=== PATIENT | female | born 1995 | race Caucasian/White ===

== ENCOUNTER 2023-10-24 01:15 | Inpatient (IN) | payer OTHER ==
[2023-10-24] MEDS ORDERED: OXYTOCIN 20 UNITS in 0.9% NS 20 UNIT/1,000 ML INFUS.BAG IV ONE ×2 (02:36→07:48)
[2023-10-24] MEDS ORDERED: LIDOCAINE HCL 1% PRESERVATIVE FREE - 30ML VIAL ONE (02:36)
[2023-10-24] MEDS ORDERED: DEXTROSE 5%-LACTATED RINGERS 1,000 ML IV SCH ×2 (02:45→04:45)
[2023-10-24 03:10] VITALS: BMI 35.7
[2023-10-24 03:12] LABS: BASO % 0.8 % (0-2.0); EOS % 0.6 % (0-4.5); HEMATOCRIT 38.7 % (32.4-45.2); HEMOGLOBIN 12.9 GM/dL (10.7-15.3); LYMPH % 20.9 % (8-40); MCHC 33.3 g/dl (32.0-36.0); MEAN CELL VOLUME 87.1 fl (80-96); MEAN PLT VOLUME 10.6 fl (7.5-11.1); MONO % 5.8 % (3.8-10.2); NEUT % 71.9 % (42.8-82.8); PLATELET COUNT 201 10^3/uL (134-434); RBC 4.45 M/mm3 (3.60-5.2); WHITE BLOOD COUNT 14.4 K/mm3 (4.0-10.0)
[2023-10-24 03:18] LABS: INR 0.98 (0.83-1.09); PROTHROMBIN TIME (PATIENT) 11.4 SEC (9.7-13.0)
[2023-10-24 03:20] LABS: ACTIVATED PTT 26.3 SECONDS (25.2-36.5)
[2023-10-24] MEDS ORDERED: OXYTOCIN 10 UNITS/ML VIAL ONE (03:20)
[2023-10-24 03:32] LABS: POTASSIUM 4.1 mmol/L (3.5-5.1)
[2023-10-24 03:35] LABS: BLOOD UREA NITROGEN 13.4 mg/dL (7-18)
[2023-10-24 03:38] LABS: CREATININE 0.8 mg/dL (0.55-1.3)
[2023-10-24 03:43] LABS: CALCIUM 9.6 mg/dL (8.5-10.1)
[2023-10-24] MEDS: OXYTOCIN 20 UNITS in 0.9% NS 20 UNIT/1,000 ML INFUS.BAG IV SCH ×2 (04:30→07:50)
[2023-10-24] MEDS ORDERED: ACETAMINOPHEN 325 MG TABLET (FP) PO PRN (04:49)
[2023-10-24] MEDS ORDERED: WITCH HAZEL 50% (TUCKS) 40 PAD/JAR PAD TP PRN (04:49)
[2023-10-24] MEDS ORDERED: BENZOCAINE 28 GM HEMORRHOIDAL OINTMENT TP PRN (04:49)
[2023-10-24] MEDS ORDERED: IBUPROFEN 600 MG TABLET (FP) PO ONE (05:48)
[2023-10-24] MEDS: IBUPROFEN 600 MG TABLET (FP) PO PRN (05:50)
[2023-10-24 06:07] LABS: CORD BASE EXCESS -5.9 mmol/L (0-2); CORD HCO3 21.5 mmHg (20-29); CORD PCO2 48.5 mmHg (30-78); CORD pH 7.264 (7.14-7.44)
[2023-10-24] MEDS: PRENATAL VITAMINS W/ FOLIC ACID TABLET (FP) PO SCH (10:17)
[2023-10-25] MEDS: IBUPROFEN 600 MG TABLET (FP) PO PRN ×3 (02:17→18:38)
[2023-10-25 08:53] LABS: BASO % 0.3 % (0-2.0); EOS % 0.4 % (0-4.5); HEMATOCRIT 32.7 % (32.4-45.2); HEMOGLOBIN 10.8 GM/dL (10.7-15.3); LYMPH % 16.4 % (8-40); MCH 29.2 pg (25.7-33.7); MEAN CELL VOLUME 88.3 fl (80-96); MEAN PLT VOLUME 10.4 fl (7.5-11.1); MONO % 4.6 % (3.8-10.2); NEUT % 78.3 % (42.8-82.8); PLATELET COUNT 138 10^3/uL (134-434); RBC 3.71 M/mm3 (3.60-5.2); RDW 14.3 % (11.6-15.6); WHITE BLOOD COUNT 12.5 K/mm3 (4.0-10.0)
[2023-10-25] MEDS: PRENATAL VITAMINS W/ FOLIC ACID TABLET (FP) PO SCH (09:47)
[2023-10-25 21:46] VITALS: RESP 16
[2023-10-26] MEDS: IBUPROFEN 600 MG TABLET (FP) PO PRN (06:09)
[2023-10-26 08:39] VITALS: BP 149/89; PULSE 69; TEMP 98.5
[2023-10-26] MEDS: PRENATAL VITAMINS W/ FOLIC ACID TABLET (FP) PO SCH (10:11)
== END 2023-10-26 12:05 | disposition home or self-care (01) | DRG 807 ==
LOC: JDEL 01:15 → JLDR 02:30 → J3W 07:55
PROVIDERS: ADMIT Obstetrics & Gynecology Maternal & Fetal Medicine; ATTEND Obstetrics & Gynecology Maternal & Fetal Medicine
PROC: 10E0XZZ Delivery of Products of Conception, External Approach (ICD-10-PCS; principal; 2023-10-24)
DX: O10.92 Unspecified pre-existing hypertension complicating childbirth (principal); Z37.0 Single live birth; O32.6XX0 Maternal care for compound presentation, not applicable or unspecified; Z3A.38 38 weeks gestation of pregnancy
CPT/HCPCS: 36415; 36600; 80048; 82803; 85025; 85610; 85730; 86780; 86850; 86900; 86901